=== PATIENT | female | born 1975 | race Caucasian/White ===

== ENCOUNTER → 2017-09-30 | Outpatient (CLI) | payer BC, OTHER ==
--- NOTE | 2017-09-30 10:46 | KCIC ---
EXAM: Head CT without contrast. HISTORY: Paresthesia and weakness. TECHNIQUE: Computed tomographic images of the head were obtained without contrast. *One or more of the following individualized dose reduction techniques were utilized for this examination: 1. Automated exposure control. 2. Adjustment of the mA and/or kV according to patient size. 3. Use of iterative reconstruction technique. COMPARISON: None. FINDINGS: There is no acute or subacute extra-axial or intraparenchymal hemorrhage. There is no mass effect or midline shift. There is no hydrocephalus. The painter-white matter differentiation pattern is intact. There is a left middle cranial fossa arachnoid cyst measuring 3.5 cm. The visualized portions of the orbits, paranasal sinuses and mastoid air cells are unremarkable. No suspicious calvarial lesion is seen. IMPRESSION: 1. No acute intracranial finding. 2. 3.5 cm left middle cranial fossa arachnoid cyst. This is typically of no clinical significance. Electronically signed by: Poonam Lorenzana MD (09/30/2017 10:43 AM) [id number]
== END | disposition home or self-care (01) ==
LOC: KCIC CT 10:07
PROVIDERS: ATTEND Family Medicine
DX: G93.0 Cerebral cysts (principal); R53.1 Weakness; R20.2 Paresthesia of skin
CPT/HCPCS: 70450

== ENCOUNTER → 2018-03-01 | Outpatient (CLI) | payer BC | END | disposition home or self-care (01) | LOC: KCIC CT 10:05 | DX: K42.9 Umbilical hernia without obstruction or gangrene (principal); R31.29 Other microscopic hematuria; R10.2 Pelvic and perineal pain; Z90.710 Acquired absence of both cervix and uterus | CPT/HCPCS: 74176 ==